=== PATIENT | female | born 1995 | race Caucasian/White ===

== ENCOUNTER 2017-12-15 01:42 | Inpatient (IN) | payer MEDICAID ==
[~2017-12-15] VITALS: Ht 162.6 cm; Wt 70.3 kg
[2017-12-15 01:50] VITALS: Ht 162.6 cm; Wt 70.3 kg
[2017-12-15 02:45] LABS: PLATELET COUNT 331 x10^3mcL (130-400)
[2017-12-15 02:47] LABS: BASOPHIL % 2.1 % (0-2)
[2017-12-15 02:58] LABS: CALCIUM 8.1 mg/dL (8.5-10.1); CARBON DIOXIDE 20.4 mmol/L (21-32); CHLORIDE SERUM 107 mmol/L (98-107); CREATININE SERUM 0.6 mg/dL (0.6-1.0); GFR1 > 60 mL/min; GLUCOSE SERUM 114 mg/dL (74-106); POTASSIUM SERUM 3.3 mmol/L (3.5-5.1); SODIUM SERUM 141 mmol/L (136-145)
[2017-12-15 03:10] LABS: ALBUMIN 3.6 g/dL (3.4-5.0); ALKALINE PHOSPHATASE 76 U/L (46-116); ALT/SGPT 18 U/L (14-59); AST/SGOT 20 U/L (15-37); BILIRUBIN TOTAL 0.11 mg/dL (0.20-1.00); FREE T4 1.01 ng/dL (0.76-1.46); TOTAL PROTEIN, SERUM 7.6 g/dL (6.4-8.2)
[2017-12-15] MEDS ORDERED: SEROQUEL100 MG (04:37)
[2017-12-15 05:29] LABS: AMPHETAMINE QUAL UR NONE DETECTED (NEG <=1000)
[2017-12-15 09:47] VITALS: BP 147/89
[2017-12-15 13:48] LABS: CHOLESTEROL/HDL RATIO 2.9; MAGNESIUM 2.6 mg/dL (1.8-2.4); PHOSPHOROUS 3.2 mg/dL (2.5-4.9)
[2017-12-15 13:50] LABS: T3 TOTAL 0.99 ng/mL
[2017-12-15 13:57] LABS: FREE T4 0.94 ng/dL (0.76-1.46)
[2017-12-15 15:01] LABS: microscopic required? YES; urine erythrocyte TRACE (NEGATIVE)
== END 2017-12-15 18:35 | disposition left against medical advice (07) | DRG 364 ==
LOC: ED 01:42 → DU 06:55
PROVIDERS: Emergency Medicine; Family Medicine
PROC: 0JQH0ZZ Repair Left Lower Arm Subcutaneous Tissue and Fascia, Open Approach (ICD-10-PCS; principal; 2017-12-15)
DX: S61.512A Laceration without foreign body of left wrist, initial encounter (principal); G92 Toxic encephalopathy; T51.0X1A Toxic effect of ethanol, accidental (unintentional), initial encounter; T40.7X1A Poisoning by cannabis (derivatives), accidental (unintentional), initial encounter; F10.129 Alcohol abuse with intoxication, unspecified; F12.129 Cannabis abuse with intoxication, unspecified; E87.6 Hypokalemia; E83.39 Other disorders of phosphorus metabolism; F41.1 Generalized anxiety disorder; F32.9 Major depressive disorder, single episode, unspecified; F17.210 Nicotine dependence, cigarettes, uncomplicated; Z68.24 Body mass index [BMI] 24.0-24.9, adult; Y90.6 Blood alcohol level of 120-199 mg/100 ml; X78.9XXA Intentional self-harm by unspecified sharp object, initial encounter; Y92.009 Unspecified place in unspecified non-institutional (private) residence as the place of occurrence of the external cause
CPT/HCPCS: 83880; 84439; 90715; G0480; J2001; J3411; J3475; J3490; J7030; Q0092

== ENCOUNTER 2018-01-23 06:39 | Emergency (ER) | payer OTHER ==
[~2018-01-23] VITALS: Ht 162.6 cm; Wt 65.8 kg
[~2018-01-23 06:39] MED LIST: SEROQUEL100 MG
[2018-01-23 06:44] VITALS: Ht 162.6 cm; Wt 65.8 kg
[2018-01-23 07:20] LABS: BASOPHIL % 0.4 % (0-2); PLATELET COUNT 346 x10^3mcL (130-400)
[2018-01-23 07:22] LABS: RED CELL DISTRIBUTION WIDTH 14.9 % (11.5-14.5)
[2018-01-23 07:45] LABS: ALBUMIN 3.8 g/dL (3.4-5.0); ALKALINE PHOSPHATASE 81 U/L (46-116); ALT/SGPT 21 U/L (14-59); AST/SGOT 16 U/L (15-37); BILIRUBIN TOTAL 0.58 mg/dL (0.20-1.00); CALCIUM 9.1 mg/dL (8.5-10.1); CHLORIDE SERUM 101 mmol/L (98-107); CREATININE SERUM 0.7 mg/dL (0.6-1.0); GFR1 > 60 mL/min; GLUCOSE SERUM 116 mg/dL (74-106); SODIUM SERUM 139 mmol/L (136-145); TOTAL PROTEIN, SERUM 8.1 g/dL (6.4-8.2)
[2018-01-23 08:05] LABS: AMPHETAMINE QUAL UR POSITIVE (NEG <=1000)
[2018-01-23 11:34] VITALS: BP 148/89
== END 2018-01-23 11:10 | disposition home or self-care (01) ==
LOC: ED 06:39
PROVIDERS: Emergency Medicine
DX: F15.20 Other stimulant dependence, uncomplicated (principal); F17.210 Nicotine dependence, cigarettes, uncomplicated; F12.10 Cannabis abuse, uncomplicated; E87.6 Hypokalemia
CPT/HCPCS: 36415; G0480; J2060; Q0092